=== PATIENT | female | born 1980 | race Caucasian/White ===

== ENCOUNTER 2017-03-06 12:53 | Inpatient (IN) | payer MEDICAID, OTHER ==
[~2017-03-06] VITALS: Ht 327.7 cm; Wt 69.0 kg
[2017-03-06] MEDS ORDERED: LACTATED RINGER'S 1000 ML INJ 1,000 ML IV PRN (12:59)
[2017-03-06] MEDS ORDERED: ONDANSETRON HCL 4 MG/2 ML VIAL IV PRN (13:00)
[2017-03-06] MEDS ORDERED: MINERAL OIL 10 ML VIAL TOPICAL PRN (13:00)
[2017-03-06] MEDS ORDERED: OXYTOCIN 30 UNITS-500ML PREMIX 500 ML IV ONE ×2 (13:00→21:00)
[2017-03-06] MEDS ORDERED: LIDOCAINE HCL 1% 50 ML VIAL I-DERMAL PRN (13:00)
[2017-03-06] MEDS ORDERED: SODIUM CHLORID 0.9% 500 ML INJ 500 ML IV PRN (13:00)
[2017-03-06] MEDS ORDERED: LIDOCAINE HCL 1% 50 ML VIAL INFIL PRN (13:00)
[2017-03-06 13:16] LABS: HEMATOCRIT 38.6 % (35.0-46.0); MEAN CELL VOLUME 86.7 FL (80.0-100.0); MEAN CORPUSCULAR HEMOGLOBIN 28.4 PG (27.0-34.0); MEAN CORPUSCULAR HGB CONC 32.8 % (32.0-36.0); PLATELET COUNT 192 TH/MM3 (150-450); RED BLOOD COUNT 4.45 MIL/MM3 (4.00-5.30); WHITE BLOOD COUNT 22.1 TH/MM3 (4.0-11.0)
[2017-03-06 13:18] LABS: HEMO FLAGS AUTO DIFF
--- NOTE | 2017-03-06 13:18 | PD ---
HPI Chief Complaint severe pain and failed progression of labor with gisela chua Date Seen: Mar 06, 2017 Time Seen: 13:18 Travel History International Travel<30 Days: No Contact w/Intl Traveler<30Days: No History of Present Illness HPI 37 yo at presented to OB triage in active labor 8cm dilated after failed progression of labor with Gisela chua. Pt stated she has been 8cm dilated since 8am this morning. Pt complains of pain and with cervical swelling. GBS negative. ROM occurred 2200 last night 03/05. Para: 1 : 2 History Past Medical History Medical History: Denies Significant Hx Obstetric History Obstetric History . -1 - 15yrs ago Past Surgical History Surgical History: No Previous Surgery Family History Family History: Negative Allergies-Medications (Allergen,Severity, Reaction): Coded Allergies: No Known Allergies (Unverified , 03/06/17) Review of Systems Except as stated in HPI: all other systems reviewed are Neg Physical Exam Narrative GENERAL: Well-nourished, well-developed patient. SKIN: Warm and dry. HEAD: Normocephalic and atraumatic. EYES: No scleral icterus. No injection or drainage. ENT: No nasal drainage noted. Mucous membranes pink. Airway patent. NECK: Supple, trachea midline. No JVD. CARDIOVASCULAR: Regular rate and rhythm without murmurs, gallops, or rubs. RESPIRATORY: Breath sounds equal bilaterally. No accessory muscle use. ABDOMEN/GI: Abdomen soft, non-tender, bowel sounds present, no rebound, no guarding Gravid to 40 weeks size GENITOURINARY: External Genitalia: intact and normal in appearance Dilatation: 8 Effacement: 80 Station: 0 Membranes: ruptured Uterine Contractions: present, every 3 mins FHT's: Category: 1 Baseline: 130 Reactive: positive Variability: mod Decels: none EXTREMITIES: No cyanosis or edema. BACK: Nontender without obvious deformity. No CVA tenderness. NEUROLOGICAL: Awake and alert. Motor and sensory grossly within normal limits. Five out of 5 muscle strength in all muscle groups. Normal speech. Data Data Vital Signs Reviewed: Yes Orders Orders Admit To Inpatient (03/06/17 ) Code Status (03/06/17 12:59) Vital Signs (Adult) .Per protocol (03/06/17 12:59) Activity Oob Ad Natividad (03/06/17 12:59) Heart (03/06/17 12:59) Amnioinfusion (03/06/17 12:59) Urinary Catheter Management .ONCE (03/06/17 12:59) Diet Liquid (03/06/17 Lunch) Lactated Ringer's 1000 Ml Inj (Lr 1000 M (03/06/17 12:59) Lactated Ringer's 1000 Ml Inj (Lr 1000 M (03/06/17 12:59) Sodium Chlorid 0.9% 500 Ml Inj (Ns 500 M (03/06/17 13:00) Sodium Chlor 0.9% 1000 Ml Inj (Ns 1000 M (03/06/17 13:19) Lidocaine 1% Inj (50 Ml) (Xylocaine 1% I (03/06/17 13:00) Ondansetron Inj (Zofran Inj) (03/06/17 13:00) Fentanyl Inj (Fentanyl Inj) (03/06/17 13:00) Fentanyl Inj (Fentanyl Inj) (03/06/17 13:00) Complete Blood Count With Diff (03/06/17 12:59) Hold Clot (03/06/17 12:59) Abo/Rh Blood Type (03/06/17 12:59) Urinalysis - C+S If Indicated (03/06/17 12:59) Resp Oxygen Non Rebreathe Mask (03/06/17 ) ^ Epidural / Intrathecal Infus (03/06/17 12:59) Oxytocin 30 Units-500ml Premix (Pitocin (03/06/17 13:00) Lidocaine 1% Inj (50 Ml) (Xylocaine 1% I (03/06/17 13:00) Light Mineral Oil (Muri-Lube Oil) (03/06/17 13:00) Inpatient Certification (03/06/17 ) Specimen To Be Collected PRN (03/06/17 12:59) Group B Strep: Negative MDM Plan 37 yo at 40 weeks gestation presented to OB triage due to failed progression of labor with Gisela chua. 1. IUP at 40 wks - Continue with routine OB care -will give Benadryl 50mg IV once to help reduce cervical swelling -admit for further labor management and pain control dayana Sandoval Diagnosis Diagnosis: Primary Impression: 40 weeks gestation of Daysi Pillai MD R1 Mar 06, 2017 13:18
[2017-03-06] MEDS ORDERED: SODIUM CHLOR 0.9% 1000 ML INJ 1,000 ML IV PRN (13:19)
[2017-03-06] MEDS ORDERED: fentaNYL 2MCG-BUPIV 0.125% INJ 100 ML ONE (13:29)
[2017-03-06 13:42] LABS: BANDS 7 % (0-6); NEUTROPHIL # MANUAL DIFF 20.1 TH/MM3 (1.8-7.7); PLATELET ESTIMATE SMEAR NORMAL (NORMAL); PLATELET MORPHOLOGY NORMAL (NORMAL); POLYS (SEG NEUTROPHILS) 84 % (16-70); WBC DIFF SAMPLE 100
[2017-03-06 13:43] LABS: SCAN/DIFF FINAL DIFF MANUAL; TOXIC VACUOLATION PRESENT (NONE SEEN)
--- NOTE | 2017-03-06 13:44 | PD ---
History of Present Illness History of Present Illness Patient is a 37-year-old 2 para 1001 procedure care with Marilee Bell. She she reports rupture of membranes of clear fluid at approximately 10:30 PM last night. She separately noted the onset of painful contractions. She presented to the center at approximate 4:30 AM and was noted before semi-is dilated. Her labor progressed and she was noted to be 8 cm dilated at 8 AM however has not had any further certain cervical dilation since then and has been pushing against an incompletely dilated cervix due to pressure and pain. She presents for pain management and further labor management. She was counseled at length about the normal labor progress and the concern that labor progress has been slower than expected however her goal is for vaginal delivery if possible the heart tones are reassuring so we will start her management with pain management and further reassess labor progress. We did discuss the potential need for delivery if there is no further labor progress or for other concerns or nonreassuring status. A bedside ultrasound confirmed cephalic presentation. She will be admitted for pain control and labor management. She is GBS negative. Kristie Sandoval MD Mar 06, 2017 13:44
[2017-03-06] MEDS ORDERED: diphenhydrAMINE HCL 50 MG/ML VIAL IV PUSH ONE (14:45)
--- NOTE | 2017-03-06 14:55 | HHI.PR ---
Subjective Remarks Progress note S: Patient reports she is feeling much better after receiving her epidural she is resting comfortably O: VSS, AF FHT: 120s, moderate long-term variability with good accelerations and no decelerations noted [place]: Contractions are noted every 2-3 minutes SVE: 880/0 Assessment and plan: 1. IUP at 40.0 2. Active labor: Patient is now relaxed after the epidural, IUPC placed for more accurate monitoring of contractions 3. well-being: Reassuring testing with category 1 FHR tracing 4. GBS negative Objective Result Diagram: 03/06/17 1308 Kristie Sandoval MD Mar 06, 2017 14:55
[2017-03-06] MEDS ORDERED: ePHEDrine/NS 25 MG/5 ML SYR IV PRN (15:00)
[2017-03-06] MEDS ORDERED: DO NOT ADMINISTER ANTICOAGULANTS PRN (15:00)
[2017-03-06] MEDS ORDERED: fentaNYL 2MCG-BUPIV 0.125% 100 ML EPIDURAL SCH (15:00)
[2017-03-06] MEDS ORDERED: NO SYSTEM NARCOTICS PRN (15:00)
[2017-03-06] MEDS: LACTATED RINGER'S 1000 ML INJ 1,000 ML IV SCH ×3 (15:03→20:19)
[2017-03-06] MEDS ORDERED: OXYTOCIN 30 UNITS-500ML PREMIX 500 ML IV SCH (15:45)
[2017-03-06] MEDS ORDERED: OXYTOCIN 30 UNITS 500ML PREMIX IV ONE (17:15)
--- NOTE | 2017-03-06 17:51 | HHI.HP ---
History & Physical H&P HPI HPI Chief Complaint severe pain and failed progression of labor with gisela chua Date Seen: Mar 06, 2017 Time Seen: 13:18 Travel History International Travel<30 Days: No Contact w/Intl Traveler<30Days: No History of Present Illness HPI 37 yo at presented to OB triage in active labor 8cm dilated after failed progression of labor with Gisela chua. Pt stated she has been 8cm dilated since 8am this morning. Pt complains of pain and with cervical swelling. GBS negative. ROM occurred 2200 last night 03/05. Para: 1 : 2 History (Limited) History Past Medical History Medical History: Denies Significant Hx Obstetric History Obstetric History . -1 - 15yrs ago Past Surgical History Surgical History: No Previous Surgery Family History Family History: Negative Allergies-Medications Allergies-Medications (Allergen,Severity, Reaction): Coded Allergies: No Known Allergies (Unverified , 03/06/17) ROS Review of Systems Except as stated in HPI: all other systems reviewed are Neg Physical Exam Physical Exam Narrative GENERAL: Well-nourished, well-developed patient. SKIN: Warm and dry. HEAD: Normocephalic and atraumatic. EYES: No scleral icterus. No injection or drainage. ENT: No nasal drainage noted. Mucous membranes pink. Airway patent. NECK: Supple, trachea midline. No JVD. CARDIOVASCULAR: Regular rate and rhythm without murmurs, gallops, or rubs. RESPIRATORY: Breath sounds equal bilaterally. No accessory muscle use. ABDOMEN/GI: Abdomen soft, non-tender, bowel sounds present, no rebound, no guarding Gravid to 40 weeks size GENITOURINARY: External Genitalia: intact and normal in appearance Dilatation: 8 Effacement: 80 Station: 0 Membranes: ruptured Uterine Contractions: present, every 3 mins FHT's: Category: 1 Baseline: 130 Reactive: positive Variability: mod Decels: none EXTREMITIES: No cyanosis or edema. BACK: Nontender without obvious deformity. No CVA tenderness. NEUROLOGICAL: Awake and alert. Motor and sensory grossly within normal limits. Five out of 5 muscle strength in all muscle groups. Normal speech. Data Data Data Vital Signs Reviewed: Yes Orders Orders Admit To Inpatient (03/06/17 ) Code Status (03/06/17 12:59) Vital Signs (Adult) .Per protocol (03/06/17 12:59) Activity Oob Ad Natividad (03/06/17 12:59) Heart (03/06/17 12:59) Amnioinfusion (03/06/17 12:59) Urinary Catheter Management .ONCE (03/06/17 12:59) Diet Liquid (03/06/17 Lunch) Lactated Ringer's 1000 Ml Inj (Lr 1000 M (03/06/17 12:59) Lactated Ringer's 1000 Ml Inj (Lr 1000 M (03/06/17 12:59) Sodium Chlorid 0.9% 500 Ml Inj (Ns 500 M (03/06/17 13:00) Sodium Chlor 0.9% 1000 Ml Inj (Ns 1000 M (03/06/17 13:19) Lidocaine 1% Inj (50 Ml) (Xylocaine 1% I (03/06/17 13:00) Ondansetron Inj (Zofran Inj) (03/06/17 13:00) Fentanyl Inj (Fentanyl Inj) (03/06/17 13:00) Fentanyl Inj (Fentanyl Inj) (03/06/17 13:00) Complete Blood Count With Diff (03/06/17 12:59) Hold Clot (03/06/17 12:59) Abo/Rh Blood Type (03/06/17 12:59) Urinalysis - C+S If Indicated (03/06/17 12:59) Resp Oxygen Non Rebreathe Mask (03/06/17 ) ^ Epidural / Intrathecal Infus (03/06/17 12:59) Oxytocin 30 Units-500ml Premix (Pitocin (03/06/17 13:00) Lidocaine 1% Inj (50 Ml) (Xylocaine 1% I (03/06/17 13:00) Light Mineral Oil (Muri-Lube Oil) (03/06/17 13:00) Inpatient Certification (03/06/17 ) Specimen To Be Collected PRN (03/06/17 12:59) Group B Strep: Negative MDM MDM Plan 37 yo at 40 weeks gestation presented to OB triage due to failed progression of labor with Gisela chua. 1. IUP at 40 wks - Continue with routine OB care -will give Benadryl 50mg IV once to help reduce cervical swelling -admit for further labor management and pain control dayana Sandoval Diagnosis Diagnosis: Primary Impression: 40 weeks gestation of Daysi Pillai MD R1 Mar 06, 2017 17:51
--- NOTE | 2017-03-06 18:05 | PD.LABORPN ---
Subjective Subjective Labor progress note Subjective: Patient is comfortable with her epidural and is resting with her family in the room Objective: Vital signs are stable and afebrile FHT: Heart tones are in the 120s and reassuring with good accelerations noted toco: Contractions every 3-4 minutes SVE: Vaginal exam remains essentially unchanged Assessment/plan: 1. IUP at 40.0 2. Active labor with apparent arrest of dilation, the patient was previously offered the opportunity to augment labor with oxytocin Jun declined. We had a lengthy discussion at this time that likely augmentation with oxytocin will would not have changed the labor outcome as she has continued to contract but not made further significant cervical change we discussed the recommendation at this time to proceed with a delivery. Risks, benefits, and alternatives were discussed at length with the patient including but not limited to pain, infection, bleeding, bleeding that might require blood transfusion hysterectomy, infection which could include intra-abdominal or wound infection/breakdown, injury to other organs like the bladder, bowels, nerves, vessels and were injury to the baby, as well as other possible complications the patient is in agreement and had all of her questions answered and we will proceed when the OR becomes available 3. Reassuring testing 4. GBS negative Objective Objective Pelvic Exam: Cervix: [-] Dilatation: [-] Effacement: [-] Station: [-] Presentation: [-] Membranes: [intact or ruptured] Uterine Contractions: [-] FHT's: Category: [-] Baseline: [-] Reactive: [-] Variability: [-] Decels: [-] Weeks Gestation: 39 Gest Age Assessed Date: Mar 06, 2017 Gest Age Assessed Time: 19:00 Pt started active labor?: No Kristie Sandoval MD Mar 06, 2017 18:05
[2017-03-06] MEDS ORDERED: LACTATED RINGER'S 1000 ML INJ 1,000 ML IV ONE (18:10)
[2017-03-06] MEDS ORDERED: OXYTOCIN 10 UNIT/ML AMP ONE (18:54)
[2017-03-06] MEDS ORDERED: MISOPROSTOL 200 MCG TAB ONE (18:55)
[2017-03-06] MEDS ORDERED: METHYLERGONOVINE MALEATE 0.2 MG/ML VIAL ONE (18:55)
[2017-03-06] MEDS ORDERED: ceFAZolin 2 GM PREMIX 50 ML IV SCH (19:15)
[2017-03-06] MEDS ORDERED: ONDANSETRON HCL 4 MG/2 ML VIAL ONE (19:44)
[2017-03-06] MEDS ORDERED: MORPHINE SULFATE PF 5 MG/10 ML VIAL ONE (19:44)
[2017-03-06] MEDS ORDERED: CITRIC ACID-SODIUM CITRATE LIQ 30 ML UDC PO SCH (19:45)
--- NOTE | 2017-03-06 20:49 | PD.OB.DELI ---
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, monitor, Pulse oximetry Urinary catheter: Inserted using sterile technique, To dependent drainage, ml urine output (300cc clear urine at the end of the procedure) Sterile preparation: Other (chloraprep) Position: Supine with wedge to left side Operative Features Skin Incision: Pfannenstiel Uterine Incision: Low transverse w/knife / blunt ext Membranes Ruptured: Previously Presentation: Occiput posterior Delivery date: Mar 06, 2017 Delivery time: 18:56 Delivery of infant: Uneventful : Female One Minute : 9 Five Minute : 9 Status of : Viable, Cord blood, Nursery present Placenta delivered: Intact Medications: Antibiotics, Oxytocin, Prostaglandins Estimated blood loss: 750cc Procedure tolerated: Well Maternal Complications: Other Maternal Condition: Stable Condition: Stable Procedure in detail See dictation Kristie Sandoval MD Mar 06, 2017 20:49
[2017-03-06] MEDS ORDERED: oxyCODONE/ACETAMINOPHEN 5 MG/325 MG TAB PO PRN ×2 (21:00)
[2017-03-06] MEDS ORDERED: SODIUM CHLORIDE 0.9% FLUSH 10 ML FLUSH IV FLUSH PRN (21:00)
[2017-03-06] MEDS ORDERED: SIMETHICONE 80 MG CHEWABLE TAB PO PRN (21:00)
[2017-03-06] MEDS ORDERED: SODIUM CHLORIDE 0.9% FLUSH 10 ML FLUSH IV FLUSH SCH (21:00)
[2017-03-06] MEDS ORDERED: ONDANSETRON HCL 4 MG/2 ML VIAL IV PUSH PRN (21:00)
[2017-03-06] MEDS ORDERED: METHYLERGONOVINE MALEATE 0.2 MG TAB PO SCH (21:00)
[2017-03-06] MEDS ORDERED: OXYTOCIN 30 UNITS-500ML PREMIX 500 ML ONE (21:04)
[2017-03-07] MEDS ORDERED: LACTATED RINGER'S 1000 ML INJ 1,000 ML IV SCH (01:55)
[2017-03-07 06:03] LABS: AUTOMATED NEUTROPHIL # 22.4 TH/MM3 (1.8-7.7); BASOPHIL % 0.1 % (0.0-2.0); HEMATOCRIT 32.4 % (35.0-46.0); HEMO FLAGS DIFF FINAL; LYMPH % 4.5 % (9.0-44.0); LYMPHOCYTE # 1.1 TH/MM3 (1.0-4.8); MEAN CELL VOLUME 87.9 FL (80.0-100.0); MEAN CORPUSCULAR HEMOGLOBIN 28.4 PG (27.0-34.0); MEAN CORPUSCULAR HGB CONC 32.4 % (32.0-36.0); MONO % 3.4 % (0.0-8.0); PLATELET COUNT 150 TH/MM3 (150-450); RED BLOOD COUNT 3.69 MIL/MM3 (4.00-5.30); RED CELL DISTRIBUTION WIDTH 15.4 % (11.6-17.2); WHITE BLOOD COUNT 24.3 TH/MM3 (4.0-11.0)
[2017-03-07] MEDS: IBUPROFEN 600 MG TAB PO PRN ×3 (06:41→23:03)
[2017-03-07] MEDS ORDERED: OXYTOCIN 30 UNITS-500ML PREMIX 500 ML IV PRN (07:00)
--- NOTE | 2017-03-07 07:33 | HHI.OB ---
Subjective Post Operative Day: 1 Remarks Pt seen and examined this morning. Post Operative day #1 AFVSS overnight. Incision not draining Decreased lochia. Denies dysuria. No breast tenderness. She is feeding the baby via breast. Appetite good. No nausea or vomiting. Patient has not yet had a bowel movement or add bowel gas. Ambulating well. Denies calf pain or shortness of breath. Otherwise, she is doing well this morning and has no other concerns. Objective Result Diagram: 03/07/17 0523 Objective Remarks GENERAL: Well-nourished, well-developed patient. CARDIOVASCULAR: Regular rate and rhythm without murmurs, gallops, or rubs. RESPIRATORY: Breath sounds equal bilaterally. No accessory muscle use. ABDOMEN/GI: Abdomen soft, non-tender, bowel sounds present. Incision: Clean, dry and intact. Fundus: Firm, non-tender at umbilicus. GENITOURINARY: Light to moderate bleeding. EXTREMITIES: No cyanosis or edema, non-tender, without signs of DVT. Medications and IVs Current Medications Medications (Trade) Dose Ordered Sig/[place] Route Start Time Stop Time Status Last Admin Lactated Ringer's 1,000 ml @ 125 mls/hr Q8H IV 03/06/17 12:59 03/06/17 20:19 Lactated Ringer's 1,000 ml @ 3,000 mls/hr Q20M PRN IV 03/06/17 12:59 03/06/17 13:14 Sodium Chloride 500 ml @ 1,000 mls/hr ONCE PRN IV 03/06/17 13:00 03/07/17 12:59 Sodium Chloride 1,000 ml @ 100 mls/hr Q10H PRN IV 03/06/17 13:19 (Xylocaine 1% Inj (50 ml)) 0.1 ml UNSCH X1 PRN I-DERMAL 03/06/17 13:00 03/09/17 12:59 (fentaNYL INJ) 50 mcg Q1H PRN IV PUSH 03/06/17 13:00 (fentaNYL INJ) 100 mcg Q1H PRN IV PUSH 03/06/17 13:00 03/06/17 13:14 (Xylocaine 1% Inj (50 ml)) 10 ml UNSCH X1 PRN INFIL 03/06/17 13:00 03/08/17 12:59 03/06/17 20:21 (Muri-Lube Oil) 10 ml UNSCH PRN TOPICAL 03/06/17 13:00 Miscellaneous Information No systemic narcotics to be given except... UNSCH PRN .XX 03/06/17 15:00 03/07/17 14:59 Miscellaneous Information DO NOT ADMINISTER ANY ANTICOAGUL... UNSCH PRN .XX 03/06/17 15:00 03/07/17 14:59 Fentanyl/ Bupivacaine HCl 100 ml @ 0 mls/hr TITRATE EPIDURAL 03/06/17 15:00 (ePHEDrine/NS 25 MG/5 ML SYR) 10 mg UNSCH PRN IV 03/06/17 15:00 03/07/17 14:59 Oxytocin 500 ml @ 0 mls/hr TITRATE IV 03/06/17 15:45 Lactated Ringer's 1,000 ml @ 150 mls/hr Q6H40M IV 03/06/17 18:40 03/06/17 18:40 Cefazolin Sodium/ Dextrose 50 ml @ 100 mls/hr GASOLINE TRUCK CRANE OPERATOR IV 03/06/17 19:15 03/10/17 19:14 03/06/17 20:18 (Bicitra Liq) 30 ml GASOLINE TRUCK CRANE OPERATOR PO 03/06/17 19:45 03/10/17 19:44 03/06/17 20:18 Lactated Ringer's 1,000 ml @ 100 mls/hr Q10H IV 03/07/17 01:55 03/07/17 21:54 Oxytocin 500 ml @ 100 mls/hr UNSCH X1 PRN IV 03/07/17 07:00 03/08/17 06:59 (NS Flush) 2 ml BID IV FLUSH 03/06/17 21:00 (NS Flush) 2 ml UNSCH PRN IV FLUSH 03/06/17 21:00 (Mylicon Chew) 80 mg QID PRN PO 03/06/17 21:00 (Tylenol) 650 mg Q6H PRN PO 03/06/17 21:00 (Motrin) 600 mg Q6H PRN PO 03/06/17 21:00 03/07/17 06:41 (Percocet 5-325 Mg) 1 tab Q4H PRN PO 03/06/17 21:00 (Percocet 5-325 Mg) 2 tab Q4H PRN PO 03/06/17 21:00 (Alessandra-Colace) 2 tab Q12H PRN PO 03/06/17 21:00 (M-M-R Ii Inj) 0.5 ml ONCE ONCE SQ 03/07/17 16:00 03/07/17 16:01 (Boostrix Inj) 0.5 ml ONCE ONCE IM 03/07/17 16:00 03/07/17 16:01 (Zofran Inj) 4 mg Q6H PRN IV PUSH 03/06/17 21:00 03/07/17 02:54 Assessment/Plan Problem List: (1) Delivered by section ICD Codes: O82 - Encounter for delivery without indication Assessment and Plan 37y/o female who is postoperative # 1 s/p secondary to failure to progress. -Continue routine care. -Motrin PRN pain. -Encouraged OOB. Advised pelvic rest for 6 wks. will need follow-up appointment in 1-2 weeks for incision check. -Re: ctrl, she would like to discuss her options at her follow-up appointment. -Anticipate discharge in 1-2 days pending clinical course. dayana Sandoval MD Discharge Planning 1-2 days pending clinical course Jelani Nichole MD R2 Mar 07, 2017 07:33
--- NOTE | 2017-03-07 10:15 | MP ---
cc: KRISTIE SANDOVAL MD DATE OF SURGERY March 06, 2017 PREOPERATIVE DIAGNOSES 1. Intrauterine at 40 weeks. 2. Arrest of dilation at 8 cm. 3. Suspected OP presentation. POSTOPERATIVE DIAGNOSES 1. Intrauterine at 40 weeks. 2. Arrest of dilation at 8 cm. 3. OP presentation. SURGEON Kristie Sandoval MD ASSISTANTS Lula Nichole. PROCEDURE PERFORMED Primary low transverse section with two-layer closure and no extensions by Pfannenstiel skin incision. INDICATIONS The patient is a 37-year-old 2, para 1-0-0-1, who was transferred from the [facility] due to arrest of dilation at 8 cm. She was noted to be 40 weeks gestational age. Upon arrival, she was 8 cm and had an adequate trial of labor with adequate pain control but made no further progress. FINDINGS 1. A viable female infant in the cephalic presentation but occiput posterior and deflexed. Apgars 9 and 9, weighting 3530 grams. 2. The patient had normal maternal anatomy with normal fallopian tubes, ovaries and uterus. SPECIMENS REMOVED Placenta. ESTIMATED BLOOD LOSS 750 cc. IV FLUIDS 2 liters. URINE OUTPUT 300 cc clear urine at the end of the procedure. COMPLICATIONS None. PROCEDURE DESCRIPTION After obtaining informed consent with risks, benefits and alternatives discussed at length including but not limited to pain, infection, bleeding, bleeding that might require blood transfusion or hysterectomy, repeat operation, infection, wound breakdown or infection, injury to other organs like the bladder, bowel, nerves and vessels, injury to the baby, need for a blood transfusion and other possible complications, the patient was taken to the operating room with a Puente catheter in place and IV fluids running. She had reassuring heart tones. Her epidural was reduced. After arrival in the operating room, the patient was placed in the dorsal supine position with a leftward tilt and reassuring heart tones confirmed. She was prepped and draped in normal sterile fashion and, after once again confirming adequate anesthesia, a time-out procedure was performed. A Pfannenstiel skin incision was made with a scalpel. This incision was carried down to the level of the fascia and the fascia was nicked in the midline and the scalpel. The fascial incision was extended laterally with the curved Ayala scissors. The Bar clamps were applied to the superior aspect of the fascial incision which was dissected off the underlying rectus muscles bluntly and with sharp dissection with the Ayala scissors. The Bar clamps were applied to the inferior aspect of the fascial incision which was dissected off in a similar fashion. The rectus muscles were in the midline and the peritoneum entered bluntly. The peritoneal incision was extended bluntly. The Roman self-retaining wound retractor was placed to the suspected malpresentation. The vesicouterine peritoneum was identified, grasped with pickups and entered sharply with the Metzenbaum scissors. This incision was extended laterally and the bladder flap created digitally. The lower uterine segment was incised and the hysterotomy created bluntly. The hysterotomy was extended bluntly. The vertex was elevated to the level of the hysterotomy with assistance from the vagina to elevate the vertex. The vertex was delivered atraumatically followed by atraumatic delivery of the remainder of the infant. The nose and mouth were suctioned of the vigorous . The cord was clamped after a 45-second delay and the passed off to the awaiting team. The placenta was removed manually and the uterus was exteriorized and cleared of all clots and debris. The hysterotomy was repaired with a #1-0 chromic in a running locked fashion. A second layer of the same suture was used in an imbricating fashion. An additional interrupted suture of 2-0 Vicryl was used in the lower uterine segment after hemostasis was noted. The uterus was returned to the abdomen and the gutters cleared of all clots and debris. The hysterotomy was noted to be hemostatic. However, due to the friable nature of the apex of the left lower uterine incision, Avitene was placed. Excellent hemostasis was noted. The peritoneum was reapproximated with 2-0 Vicryl in a running fashion. The rectus muscles were examined and noted to be hemostatic. The fascia was reapproximated with #1 Vicryl in a running fashion. The subcutaneous tissue was irrigated with warm normal saline and noted to be hemostatic. The skin edges were reapproximated with 3-0 Monocryl in a subcuticular fashion. Excellent hemostasis and cosmesis were noted. Dermabond and a pressure dressing were placed. All sponge, lap and needle counts were correct x 2. I performed the entire procedure myself. MD TRACEY Landa/SSB /9:40 PM /9:54 AM
[2017-03-07] MEDS ORDERED: DIPHTH/TETANUS/ACEL PERTUSSIS (BOOSTER) 0.5 ML VIAL/PFS IM ONE (16:00)
[2017-03-07] MEDS ORDERED: MEASLES, MUMPS, RUBELLA VACCINE 0.5 ML VIAL SQ ONE (16:00)
[2017-03-07] MEDS: ACETAMINOPHEN 325 MG TAB PO PRN ×2 (17:02→23:03)
[2017-03-07] MEDS: DOCUSATE SODIUM 50 MG/SENNA 8.6 MG TAB PO PRN (17:02)
[2017-03-08] MEDS: ACETAMINOPHEN 325 MG TAB PO PRN ×2 (04:57→11:04)
[2017-03-08] MEDS: IBUPROFEN 600 MG TAB PO PRN ×2 (04:57→11:04)
[2017-03-08] MEDS: DOCUSATE SODIUM 50 MG/SENNA 8.6 MG TAB PO PRN (04:59)
[2017-03-08 05:57] VITALS: RESP 18
[2017-03-08] MEDS: LACTATED RINGER'S 1000 ML INJ 1,000 ML IV SCH (06:09)
--- NOTE | 2017-03-08 08:10 | HHI.OB ---
Subjective Post Operative Day: 2 Remarks Pt seen and examined this morning. Post Operative day #2 AFVSS overnight. Incision not draining Decreased lochia. Denies dysuria. No breast tenderness. She is feeding the baby via breast. Appetite good. No nausea or vomiting. Patient has not yet had a bowel movement, but does endorse bowel gas. Ambulating well. Denies calf pain or shortness of breath. Otherwise, she is doing well this morning and has no other concerns. Objective Vitals/I&O Vital Signs Date Time Temp Pulse Resp B/P (MAP) Pulse Ox O2 Delivery O2 Flow Rate FiO2 03/08/17 05:57 18 Result Diagram: 03/07/17 0523 Objective Remarks GENERAL: Well-nourished, well-developed patient. CARDIOVASCULAR: Regular rate and rhythm without murmurs, gallops, or rubs. RESPIRATORY: Breath sounds equal bilaterally. No accessory muscle use. ABDOMEN/GI: Abdomen soft, non-tender, bowel sounds present. Incision: Clean, dry and intact. Fundus: Firm, non-tender at umbilicus. GENITOURINARY: Light to moderate bleeding. EXTREMITIES: No cyanosis or edema, non-tender, without signs of DVT. Medications and IVs Current Medications Medications (Trade) Dose Ordered Sig/Lorraine Route Start Time Stop Time Status Last Admin Lactated Ringer's 1,000 ml @ 125 mls/hr Q8H IV 03/06/17 12:59 03/06/17 20:19 Lactated Ringer's 1,000 ml @ 3,000 mls/hr Q20M PRN IV 03/06/17 12:59 03/06/17 13:14 Sodium Chloride 1,000 ml @ 100 mls/hr Q10H PRN IV 03/06/17 13:19 (Xylocaine 1% Inj (50 ml)) 0.1 ml UNSCH X1 PRN I-DERMAL 03/06/17 13:00 03/09/17 12:59 (fentaNYL INJ) 50 mcg Q1H PRN IV PUSH 03/06/17 13:00 (fentaNYL INJ) 100 mcg Q1H PRN IV PUSH 03/06/17 13:00 03/06/17 13:14 (Xylocaine 1% Inj (50 ml)) 10 ml UNSCH X1 PRN INFIL 03/06/17 13:00 03/08/17 12:59 03/06/17 20:21 (Muri-Lube Oil) 10 ml UNSCH PRN TOPICAL 03/06/17 13:00 Fentanyl/ Bupivacaine HCl 100 ml @ 0 mls/hr TITRATE EPIDURAL 03/06/17 15:00 Oxytocin 500 ml @ 0 mls/hr TITRATE IV 03/06/17 15:45 Lactated Ringer's 1,000 ml @ 150 mls/hr Q6H40M IV 03/06/17 18:40 03/06/17 18:40 Cefazolin Sodium/ Dextrose 50 ml @ 100 mls/hr I O PSYCHOLOGIST IV 03/06/17 19:15 03/10/17 19:14 03/06/17 20:18 (Bicitra Liq) 30 ml I O PSYCHOLOGIST PO 03/06/17 19:45 03/10/17 19:44 03/06/17 20:18 (NS Flush) 2 ml BID IV FLUSH 03/06/17 21:00 (NS Flush) 2 ml UNSCH PRN IV FLUSH 03/06/17 21:00 (Mylicon Chew) 80 mg QID PRN PO 03/06/17 21:00 (Tylenol) 650 mg Q6H PRN PO 03/06/17 21:00 03/08/17 04:57 (Motrin) 600 mg Q6H PRN PO 03/06/17 21:00 03/08/17 04:57 (Percocet 5-325 Mg) 1 tab Q4H PRN PO 03/06/17 21:00 (Percocet 5-325 Mg) 2 tab Q4H PRN PO 03/06/17 21:00 (Alessandra-Colace) 2 tab Q12H PRN PO 03/06/17 21:00 03/08/17 04:59 (Zofran Inj) 4 mg Q6H PRN IV PUSH 03/06/17 21:00 03/07/17 02:54 Assessment/Plan Problem List: (1) Delivered by section ICD Codes: O82 - Encounter for delivery without indication Status: Acute Assessment and Plan 37y/o female who is postoperative # 2 s/p secondary to failure to progress. -Continue routine care. -Percocet and Motrin PRN pain. -Encouraged OOB. Advised pelvic rest for 6 wks. will need follow-up appointment in 1-2 weeks for incision check. -Re: ctrl, she would like to discuss her options at her follow-up appointment. -Anticipate discharge today/tomorrow pending clinical course/baby discharge dw Dr. Phani MD Discharge Planning Today or tomorrow pending clinical course/baby discharge Jelani Nichole MD R2 Mar 08, 2017 08:10
[2017-03-08] MEDS ORDERED: IBUP-232 PO (08:45)
[2017-03-08] MEDS ORDERED: OXYC1TAB63 PO (08:45)
[2017-03-08] MEDS ORDERED: SENN1TAB PO (08:45)
--- NOTE | 2017-03-08 08:46 | HHI.DCPOC ---
Discharge Care Plan Diagnosis: (1) Delivered by section Report Symptoms to Your Doctor -Temperature above 100.5 degrees -Redness, of incision or excessive or foul smelling drainage -Unusual pain or calf pain -Increased vaginal bleeding -Painful or difficulty urinating -Feelings of extreme sadness or anxiety after 2 weeks Goals to Promote Your Health * To prevent worsening of your condition and complications * To maintain your health at the optimal level Directions to Meet Your Goals Take your medications as prescribed Follow your dietary instruction Follow activity as directed Ensure plenty of rest for recovery Drink fluids for hydration Keep your appointments as scheduled Take your immunizations and boosters as scheduled If your symptoms worsen call your PCP, if no PCP go to Urgent Care Center or Emergency Room Smoking is Dangerous to Your Health. Avoid second hand smoke Call the 24-hour crisis hotline for domestic abuse at Jelani Nichole MD R2 Mar 08, 2017 08:46
== END 2017-03-08 12:31 | disposition home or self-care (01) | DRG 766 ==
LOC: HOBED 12:53 → H2EB 12:58 → H1EA 21:14
PROVIDERS: ADMIT Obstetrics & Gynecology; ATTEND Obstetrics & Gynecology
PROC: 10D00Z1 Extraction of Products of Conception, Low, Open Approach (ICD-10-PCS; principal; 2017-03-06)
PROC: 3E0R3CZ (ICD-10-PCS; 2017-03-06)
PROC: 00HU33Z Insertion of Infusion Device into Spinal Canal, Percutaneous Approach (ICD-10-PCS; 2017-03-06)
DX: O32.8XX0 Maternal care for other malpresentation of fetus, not applicable or unspecified (principal); O62.0 Primary inadequate contractions; O62.1 Secondary uterine inertia; Z3A.40 40 weeks gestation of pregnancy; Z37.0 Single live birth
CPT/HCPCS: 59025; 76815; 85007; 85025; 85027; 86900; 86901; J0690; J1200; J2210; J2274; J2405; J2590; J3010; J7120